=== PATIENT | female | born 1985 | race Caucasian/White ===

== ENCOUNTER 2021-05-07 10:56 | Inpatient (IN) ==
[2021-05-07] MEDS ORDERED: NS 0.9% 1000 ml BAG 1,000 ML IV ONE (11:26)
[2021-05-07 11:28] LABS: ABS Eosinophils 0.1 10^3/ul (0-0.6); ABS Lymphocytes 2.1 10^3/ul (1.0-4.8); ABS Monocytes 0.5 10^3/ul (0-0.8); Eosinophil % 0.8 %; Hematocrit 44 % (35-47); Hemoglobin 15.5 g/dL (12.0-16.0); Lymphocyte % 27.3 %; Mean Corpuscular HGB Conc 35 g/dL (31-36); Mean Corpuscular Hemoglobin 31 pg (27-31); Mean Corpuscular Volume 88 fL (80-97); Mean Platelet Volume 8.9 fL (7.4-10.4); Platelet Count 231 10^3/uL (150-450); Red Blood Count 4.99 10^6 /uL (3.70-4.87); Red Cell Distribution Width 12 % (10-15); White Blood Count 7.7 10^3/uL (3.5-10.8)
[2021-05-07] MEDS ORDERED: Heparin - STEMI 5,000 UNITS/ML 1 ml VIAL IV ONE ×2 (11:41→12:30)
[2021-05-07 11:48] LABS: Albumin 4.6 g/dL (3.2-5.2); Albumin/Globulin Ratio 1.4 (1-3); Calcium 9.7 mg/dL (8.6-10.3); EGFR African American 96.8 (>60); Globulin 3.2 g/dL (2-4); Potassium 3.6 mmol/L (3.5-5.0); Total Bilirubin 0.8 mg/dL (0.2-1.0); Total Protein 7.8 g/dL (6.4-8.9)
[2021-05-07 11:51] LABS: Troponin I 0.01 ng/mL (<0.03)
[2021-05-07] MEDS ORDERED: fentaNYL 100 mcg/2 ml 50 MCG/ML VIAL ONE (12:13)
[2021-05-07] MEDS ORDERED: Midazolam 5 mg/5 ml VIAL 1 mg/ml 5 ml VIAL (5 mg) ONE (12:13)
[2021-05-07] MEDS ORDERED: Iohexol 350 (CONTRAST) 200 ML MDV IV ONE (12:14)
[2021-05-07] MEDS ORDERED: Heparin 2 UNITS/ML 1000 mls 2,000 ML IV ONE (12:14)
[2021-05-07] MEDS ORDERED: Heparin 1,000 UNIT/ML 10 ml (10,000 UNITS) CATHLAB/DIALYSIS ONE (12:14)
[2021-05-07] MEDS ORDERED: VERAPAMIL 2.5 MG/ML 2 ML VIAL ** 5 mg/2 ml ONE (12:14)
[2021-05-07] MEDS ORDERED: nitroGLYCERIN DRIP 25,000 MCG/250 ML BTL ONE (12:14)
[2021-05-07] MEDS ORDERED: Lidocaine 1% VIAL 10 MG/ML VIAL ONE (12:14)
[2021-05-07] MEDS ORDERED: Bivalirudin 250 MG VIAL ONE (12:42)
[2021-05-07] MEDS ORDERED: NS 0.9% 1000 ml BAG 1,000 ML IV SCH (13:30)
[2021-05-07 13:33] LABS: Magnesium 1.8 mg/dL (1.9-2.7)
[2021-05-07 13:41] LABS: Troponin I 0.07 ng/mL (<0.03)
[2021-05-07 13:45] LABS: HCG Pregnancy 0.9 mIU/mL
[2021-05-07 14:40] LABS: INR 1.25 (0.82-1.09)
[2021-05-07 14:44] LABS: Activated Partial Thrombo Time >240.0 seconds (26.0-38.0)
[2021-05-07 14:50] LABS: TSH Ultra Thyroid Stim Horm 0.56 mcIU/mL (0.34-5.60)
[2021-05-07] MEDS ORDERED: Iohexol 350 (CONTRAST) 500 ML MDV IV ONE (15:13)
[2021-05-07] MEDS ORDERED: Al Hydrox/Mg Hydrox/Simet LIQ 30 ML UDC PO ONE (15:30)
[2021-05-07] MEDS ORDERED: Al Hydrox/Mg Hydrox/Simet LIQ 30 ML UDC ONE (15:32)
[2021-05-07] MEDS ORDERED: Pantoprazole VIAL 40 MG VIAL IV ONE (16:01)
[2021-05-07] MEDS ORDERED: LORazepam 2 mg VIAL 1 ml IV PUSH ONE (16:05)
[2021-05-07] MEDS ORDERED: Lorazepam PYXIS KEY PRN (16:05)
[2021-05-07] MEDS ORDERED: Potassium Chlor 20 meq TAB.ER PO ONE (16:22)
[2021-05-07] MEDS ORDERED: Magnesium Sulfate 2 gm BAG 2 GM/50 ML BAG IVPB ONE (16:22)
[2021-05-07] MEDS ORDERED: Magnesium Sulfate 2 gm BAG 2 GM/50 ML BAG ONE (16:33)
[2021-05-07 16:39] LABS: C Reactive Protein 1.58 mg/L (<8.01)
[2021-05-07 16:43] LABS: Troponin I 0.62 ng/mL (<0.03)
[2021-05-07 23:31] LABS: EGFR African American 94.1 (>60); EGFR Non-African American 77.8 (>60); Magnesium 2.6 mg/dL (1.9-2.7); Potassium 3.9 mmol/L (3.5-5.0)
[2021-05-08 06:07] LABS: ABS Lymphocytes 2.1 10^3/ul (1.0-4.8); ABS Monocytes 0.7 10^3/ul (0-0.8); ABS Neutrophils 6.3 10^3/ul (1.5-7.7); Eosinophil % 0.5 %; Hematocrit 37 % (35-47); Hemoglobin 13.2 g/dL (12.0-16.0); Lymphocyte % 22.7 %; Mean Corpuscular HGB Conc 35 g/dL (31-36); Mean Corpuscular Hemoglobin 31 pg (27-31); Mean Corpuscular Volume 89 fL (80-97); Platelet Count 214 10^3/uL (150-450); Red Blood Count 4.21 10^6 /uL (3.70-4.87); Red Cell Distribution Width 13 % (10-15); White Blood Count 9.1 10^3/uL (3.5-10.8)
[2021-05-08 06:29] LABS: Anion Gap 5 mmol/L (2-11); Blood Urea Nitrogen 8 mg/dL (6-24); CO2 Carbon Dioxide 22 mmol/L (22-32); Calcium 8.2 mg/dL (8.6-10.3); Chloride 109 mmol/L (101-111); EGFR African American 114.6 (>60); EGFR Non-African American 94.7 (>60); Glucose 98 mg/dL (70-100); Magnesium 2.5 mg/dL (1.9-2.7); Potassium 4.1 mmol/L (3.5-5.0); Sodium 136 mmol/L (135-145)
[2021-05-08 06:34] LABS: Troponin I 27.11 ng/mL (<0.03)
[2021-05-08] MEDS ORDERED: CALCIUM GLUCONATE 1GM/50ML NS 1 GM/50 ML BAG IV ONE (08:00)
[2021-05-08 09:20] LABS: Troponin I 18.25 ng/mL (<0.03)
[2021-05-09 06:17] LABS: ABS Eosinophils 0.1 10^3/ul (0-0.6); ABS Monocytes 0.5 10^3/ul (0-0.8); Eosinophil % 1.2 %; Hematocrit 39 % (35-47); Hemoglobin 13.7 g/dL (12.0-16.0); Lymphocyte % 26.5 %; Mean Corpuscular HGB Conc 35 g/dL (31-36); Mean Corpuscular Hemoglobin 31 pg (27-31); Mean Corpuscular Volume 89 fL (80-97); Mean Platelet Volume 8.7 fL (7.4-10.4); Platelet Count 227 10^3/uL (150-450); Red Blood Count 4.41 10^6 /uL (3.70-4.87); Red Cell Distribution Width 12 % (10-15); White Blood Count 7.6 10^3/uL (3.5-10.8)
[2021-05-09 06:39] LABS: Calcium 8.5 mg/dL (8.6-10.3); EGFR African American 107.5 (>60); EGFR Non-African American 88.8 (>60); Magnesium 1.9 mg/dL (1.9-2.7)
[2021-05-09 08:14] VITALS: BP 105/66
== END 2021-05-09 11:23 | disposition home or self-care (01) ==
LOC: ED 10:56 → CHICATH 12:28 → MEDTELE 17:27
PROVIDERS: ADMIT Internal Medicine; ATTEND Internal Medicine